=== PATIENT | female | born 1935 | race Caucasian/White ===

== ENCOUNTER 2021-09-30 13:41 | Emergency (ER) | payer OTHER ==
[2021-09-30] MEDS ORDERED: FLUORESCEIN NA 1 EA STRIP OD ONE (13:46)
[2021-09-30] MEDS ORDERED: TETRACAINE 0.5% HCL 0.6ML DROPPER.BOTTLE OD ONE (13:46)
[2021-09-30 13:56] VITALS: BP 191/69; PULSE 76; TEMP 98.6; BMI 27.0
[2021-09-30] MEDS ORDERED: TETRACAINE 0.5% OPHTH SOLN 2 ML BOTTLE ONE (13:59)
[2021-09-30] MEDS ORDERED: FLUORESCEIN NA 1 EA STRIP ONE (13:59)
== END 2021-09-30 14:30 | disposition home or self-care (01) ==
LOC: FER 13:41
DX: H10.9 Unspecified conjunctivitis (principal)
CPT/HCPCS: 99283-25